=== PATIENT | female | born 1940 | race Caucasian/White ===

== ENCOUNTER 2017-12-14 07:58 | Outpatient (CLI) | payer MEDICARE | END 2017-12-14 07:59 | disposition home or self-care (01) | LOC: BICMAMMO 07:58 | PROVIDERS: ATTEND Internal Medicine | DX: Z12.31 Encounter for screening mammogram for malignant neoplasm of breast (principal) | CPT/HCPCS: 77063; 77067 ==

== ENCOUNTER 2018-01-10 11:07 | Day surgery (SDC) | payer MEDICARE ==
[~2018-01-10 11:07] MED LIST: Gadobenate Dimeglumine 529 MG/1 ML (20ML VIAL) ONE
[2018-01-10 13:40] LABS: Calc. Creatinine Clearance 0 mL/min (70-130); Estimated GFR-MDRD Greater than 90
[2018-01-10] MEDS ORDERED: Midazolam HCl 2 mg/2 ml Vial ONE (14:06)
--- NOTE | 2018-01-10 16:52 | MRI ---
"BRAIN MRI WITH AND WITHOUT CONTRAST: 01/10/18 COMPARISON: None. HISTORY: Frontal right sided head pain, neoplasm. TECHNIQUE: Multiplanar and multisequence MR imaging of the brain is provided with and without contrast. FINDINGS: | The diffusion weighted imaging demonstrates no evidence for acute infarction. The arterial flow voids at the axial level of the skull base appear patent. The distal left vertebral artery is hypoplastic and ends in PICA. The axial gradient echo imaging demonstrates no evidence for intracranial hemorrhage. There is mild m ucosal thickening within the maxillary sinus on the right. There are a few scattered foci of increased T2 and FLAIR signal within the periventricular white mandie er suggesting small vessel disease. There is an extra-axial lesion along the course of the planum sphenoidale. This lesion is T2 and T1 isointense and demonstrates avid postcontrast enhancement and dural tail formation. It measures 1.1 c m in transverse dimension, 6 mm in craniocaudal dimension, and approximately 1.3 cm in AP dimension. The postcontrast imaging is otherwise unremarkable. IMPRESSION: 1. Enhancing extra-axial mass along the planum sphenoidale suggesting a meningioma. 2. No evidence for intracranial hemorrhage, acute infarction, or mass effect. POS: [facility]"
[2018-01-10] MEDS ORDERED: Glycopyrrolate 0.2 MG/ML 5 ML SYRINGE ONE (18:04)
[2018-01-10] MEDS ORDERED: PROPOFOL 200 MG/20 ML VIAL ONE (18:04)
== END 2018-01-10 16:30 | disposition home or self-care (01) ==
LOC: SDC/OP 11:07
PROVIDERS: ATTEND Neurological Surgery
DX: D32.0 Benign neoplasm of cerebral meninges (principal); E03.9 Hypothyroidism, unspecified; I10 Essential (primary) hypertension; Z79.899 Other long term (current) drug therapy
CPT/HCPCS: 70553; 82565; A9579; J2250; J2704

== ENCOUNTER 2018-12-22 07:55 | Outpatient (CLI) | payer MEDICARE ==
--- NOTE | 2018-12-22 09:09 | MMO ---
Bilateral MAMMO Bilat Screen [facility]. CLINICAL HISTORY: Patient is 78 years old and is seen for screening. The patient has no family history of breast cancer. The patient has no personal history of cancer. The patient has a history of right Excisional Biopsy in 1984 - benign. VIEWS: The views performed were: bilateral craniocaudal with tomosynthesis and bilateral mediolateral oblique with tomosynthesis. FILMS COMPARED: The present examination has been compared to prior imaging studies performed at [facility] on 09/10/2014, 12/04/2015, 12/10/2016 and 12/14/2017. This study has been interpreted with the assistance of computer-aided detection. MAMMOGRAM FINDINGS: There are scattered fibroglandular densities. There are no suspicious masses, suspicious calcifications, or new areas of architectural distortion. IMPRESSION: THERE IS NO MAMMOGRAPHIC EVIDENCE OF MALIGNANCY. A ROUTINE FOLLOW-UP MAMMOGRAM IN 1 YEAR IS RECOMMENDED. THE RESULTS OF THIS EXAM WERE SENT TO THE PATIENT. ACR BI-RADS Category 1 - Negative MAMMOGRAPHY NOTE: 1. A negative mammogram report should not delay a biopsy if a dominant of clinically suspicious mass is present. 2. Approximately 10% to 15% of breast cancers are not detected by mammography. 3. Adenosis and dense breasts may obscure an underlying neoplasm. Reported by: JEN MICHEL MD Electonically Signed: [id number]
== END 2018-12-22 07:56 | disposition home or self-care (01) ==
LOC: BICMAMMO 07:55
PROVIDERS: ATTEND Internal Medicine
DX: Z12.31 Encounter for screening mammogram for malignant neoplasm of breast (principal)
CPT/HCPCS: 77063; 77067

== ENCOUNTER 2020-01-10 08:33 | Outpatient (CLI) | payer MEDICARE ==
--- NOTE | 2020-01-10 09:20 | MMO ---
Bilateral MAMMO Bilat Screen [facility]. CLINICAL HISTORY: Patient is 79 years old and is seen for screening. The patient has no family history of breast cancer. The patient has no personal history of cancer. The patient has a history of right Excisional Biopsy in 1984 - benign. VIEWS: The views performed were: bilateral craniocaudal with tomosynthesis and bilateral mediolateral oblique with tomosynthesis. FILMS COMPARED: The present examination has been compared to prior imaging studies performed at [facility] on 12/04/2015, 12/10/2016, 12/14/2017 and 12/22/2018. This study has been interpreted with the assistance of computer-aided detection. MAMMOGRAM FINDINGS: There are scattered fibroglandular densities. There are stable benign appearing calcifications seen in both breasts. There are no suspicious masses, suspicious calcifications, or new areas of architectural distortion. IMPRESSION: THERE IS NO MAMMOGRAPHIC EVIDENCE OF MALIGNANCY. A ROUTINE FOLLOW-UP MAMMOGRAM IN 1 YEAR IS RECOMMENDED. THE RESULTS OF THIS EXAM WERE SENT TO THE PATIENT. ACR BI-RADS Category 2 - Benign finding MAMMOGRAPHY NOTE: 1. A negative mammogram report should not delay a biopsy if a dominant of clinically suspicious mass is present. 2. Approximately 10% to 15% of breast cancers are not detected by mammography. 3. Adenosis and dense breasts may obscure an underlying neoplasm. Reported by: RITCHIE KNOX MD Electonically Signed: [id number]
== END 2020-01-10 08:34 | disposition home or self-care (01) ==
LOC: BICMAMMO 08:33
PROVIDERS: ATTEND Internal Medicine
DX: Z12.31 Encounter for screening mammogram for malignant neoplasm of breast (principal); Z91.89 Other specified personal risk factors, not elsewhere classified
CPT/HCPCS: 77063; 77067